=== PATIENT | male | born 1995 | race Caucasian/White ===

== ENCOUNTER 2018-07-16 07:21 | Day surgery (SDC) | payer OTHER ==
[~2018-07-16] VITALS: Ht 167.6 cm; Wt 79.3 kg
[2018-07-16 08:06] VITALS: BP 118/70; PULSE 55; TEMP 97.8
[2018-07-16] MEDS ORDERED: PROZAC 20MG20 MG PO (08:15)
[2018-07-16] MEDS ORDERED: LINZESS72 MCG PO (08:16)
[2018-07-16] MEDS ORDERED: DESYREL 50MG50 MG PO (08:17)
[2018-07-16] MEDS ORDERED: PRILOSEC 20MG20 MG PO (11:49)
[2018-07-16 11:55] VITALS: BP 112/59; PULSE 70; TEMP 97.5
[2018-07-16 12:10] VITALS: BP 106/63; PULSE 68
[2018-07-16 12:24] VITALS: BP 111/71; PULSE 80
== END 2018-07-16 12:47 | disposition home or self-care (01) ==
LOC: SDCO 07:21
DX: K64.0 First degree hemorrhoids (principal); K59.00 Constipation, unspecified; K21.0 Gastro-esophageal reflux disease with esophagitis; K29.30 Chronic superficial gastritis without bleeding
CPT/HCPCS: J2250; J3010; J7030